=== PATIENT | female | born 1995 | race African-American/Black ===

== ENCOUNTER 2019-08-09 16:40 | Emergency (ER) | payer MEDICAID ==
[~2019-08-09] VITALS: Ht 172.7 cm; Wt 71.0 kg
[2019-08-09] MEDS ORDERED: MAGNESIUM/ALUMINUM HYDROXIDE/SIMETHICONE 30ML UDC PO STA (17:36)
[2019-08-09] MEDS ORDERED: FAMOTIDINE 20MG TABLET PO ONE (17:45)
[2019-08-09 17:59] VITALS: BP 103/74
[2019-08-09 18:41] LABS: CLARITY URINE CLEAR (CLEAR); COLOR URINE YELLOW (YELLOW); KETONES URINE 1+ (NEGATIVE); LEUKOCYTE ESTERASE URINE 1+ (NEGATIVE); NITRITE URINE NEGATIVE (NEGATIVE); OCCULT BLOOD URINE NEGATIVE (NEGATIVE); PH URINE 6.5 (4.5-8.0); PROTEIN URINE NEGATIVE (NEGATIVE)
[2019-08-09] MEDS ORDERED: LACTATED RINGERS 1,000 ML IV SCH (18:45)
[2019-08-09] MEDS ORDERED: ACETAMINOPHEN 500MG TABLET PO NR (19:30)
[2019-08-09] MEDS ORDERED: PRENATAL VITAMIN (19:37)
[2019-08-09 19:47] LABS: *AMPHETAMINES SCREEN URINE NEGATIVE (NEGATIVE); *BARBITURATES SCREEN URINE NEGATIVE (NEGATIVE)
[2019-08-09 19:48] LABS: *BENZODIAZEPINES SCREEN URINE NEGATIVE (NEGATIVE); METHADONE URINE SCREEN NEGATIVE (NEGATIVE); OPIATES URINE SCREEN NEGATIVE (NEGATIVE); PHENCYCLIDINE URINE SCREEN NEGATIVE (NEGATIVE)
[2019-08-09 19:49] LABS: CANNABINOID URINE SCREEN NEGATIVE (NEGATIVE)
[2019-08-09 19:50] LABS: *COCAINE SCREEN URINE NEGATIVE (NEGATIVE)
== END 2019-08-09 18:00 | disposition home or self-care (01) ==
LOC: ER 16:40 → EDSTATUS 18:05 → UNDOADMOB 18:07 → 8 EST LDRP 18:07 → UNDODISOB 21:00
DX: O26.893 Other specified pregnancy related conditions, third trimester (principal); R10.13 Epigastric pain; Z3A.00 Weeks of gestation of pregnancy not specified
CPT/HCPCS: 80305; 81003; 93005; 96360; 99281; G0378

== ENCOUNTER 2024-05-21 16:47 | Emergency (ER) | payer MEDICAID, OTHER ==
[~2024-05-21] VITALS: Ht 172.7 cm; Wt 75.0 kg
[~2024-05-21 16:47] MED LIST: PRENATAL VITAMIN
[2024-05-21 17:46] VITALS: O2SAT 95
[2024-05-21] MEDS ORDERED: CLIN-194 MT (21:27)
[2024-05-21 21:30] LABS: CLARITY URINE CLEAR (CLEAR); COLOR URINE YELLOW (YELLOW); GLUCOSE URINE NEGATIVE (NEGATIVE); KETONES URINE TRACE (NEGATIVE); LEUKOCYTE ESTERASE URINE TRACE (NEGATIVE); NITRITE URINE NEGATIVE (NEGATIVE); OCCULT BLOOD URINE NEGATIVE (NEGATIVE); PROTEIN URINE NEGATIVE (NEGATIVE); SPECIFIC GRAVITY URINE 1.028 (1.005-1.030)
[2024-05-21 21:42] LABS: BACTERIA URINE 1+; RBC URINE 0-2 /hpf (0-2); SQUAMOUS EPITHELIAL CELL URINE FEW /lpf (RARE/1+); WBC URINE 0-2 /hpf (0-2)
[2024-05-21 22:20] VITALS: BP 121/76; PULSE 78; RESP 16; TEMP 98.2
[2024-05-24 04:11] LABS: CHLAMYDIA TRACHOMATIS NAA Negative (Negative); NEISSERIA GONORRHOEAE NAA Negative (Negative)
== END 2024-05-21 22:24 | disposition home or self-care (01) ==
LOC: ER 16:47
DX: N89.8 Other specified noninflammatory disorders of vagina (principal)
CPT/HCPCS: 87491; 87591; 81003; 87210; 99284; Z7610